=== PATIENT | female | born 1995 | race African-American/Black ===

== ENCOUNTER 2021-04-18 14:22 | Emergency (ER) | payer OTHER ==
[~2021-04-18] VITALS: Ht 162.6 cm; Wt 96.6 kg
== END 2021-04-18 23:20 | disposition home or self-care (01) ==
LOC: ER 14:22
DX: F10.929 Alcohol use, unspecified with intoxication, unspecified (principal); E86.0 Dehydration; K29.70 Gastritis, unspecified, without bleeding; Z03.818 Encounter for observation for suspected exposure to other biological agents ruled out

== ENCOUNTER 2021-04-20 16:32 | Emergency (ER) | payer OTHER ==
[~2021-04-20] VITALS: Ht 162.6 cm; Wt 90.7 kg
== END 2021-04-21 02:33 | disposition home or self-care (01) ==
LOC: ER 16:32
DX: R10.9 Unspecified abdominal pain (principal); E86.0 Dehydration; Z03.818 Encounter for observation for suspected exposure to other biological agents ruled out